=== PATIENT | male | born 1985 | race American Indian/Alaskan Native ===

== ENCOUNTER 2022-06-28 08:45 | Day surgery (SDC) | payer BC, OTHER ==
[~2022-06-28] VITALS: Ht 180.3 cm; Wt 131.8 kg
[~2022-06-28 08:45] MED LIST: CLARINEX-D 121 EACH PO; CLARITIN10 M1 PO; GENTAK5 ML OPTH; OSTERA TABLET1 EACH PO; SUDAFED PE SIN1 EAC2 PO; VITAMIN D325 MC2 PO; ZYRTEC10 M3 PO
--- NOTE | 2022-06-28 12:06 | NUR ---
06/28/22 Lisandra6 Leatha Souza 6945-PATIENT ARRIVED TO PACU ON RA RR EVEN. PATIENT AWAKE DROWSY DENIES NAUSEA HOLDS UP 4 FINGERS FOR PAIN. WHEN ASKED IF TOLERABLE STATES "YA" ICE TO INCISION CDI. PILLOW PROVIDED TO COUGH. IVF INFUSING. SR.
--- NOTE | 2022-06-28 12:51 | NUR ---
PT ARRIVES TO DS RM 4 FROM PACU VIA STRETCHER A&O X3. PT DENIES NAUSEA AND TAKES SMALL SIPS OF WATER. RATES PAIN 4/10 AND "TOLERABLE" WHEN ASKED. EDUCATED ABOUT ORAL PAIN MEDS. DC CRITERIA EXPLAINED. CALL LIGHT WITHIN REACH.
[2022-06-28] MEDS ORDERED: HYDROCODON-ACE1 EA10 PO (13:23)
--- NOTE | 2022-06-28 13:36 | NUR ---
PT RESTING WITH EYES CLOSED, WAKES WITH ENTRANCE TO ROOM. PT RATES PAIN 3-4/10 AND DENIES ANY NAUSEA. THIS RN WILL CALL PT SIG OTHER PER PT REQUEST. PT ENC TO USE CALL LIGHT WITH ANY NEEDS, PROVIDED PUDDING AND CRACKERS.
--- NOTE | 2022-06-28 15:12 | NUR ---
1450: PT RESTING IN BED WITH SIGNIFICANT OTHER AT BEDSIDE. PT STATES PAIN IS "TOLERABLE" AND RATES 4/10. PT STATES INCISION AREA FEELING "TIGHT" AND IS EDUCATED ABOUT MOVEMENT. PT WOULD LIKE TO USE RESTROOM, SITS AT SIDE OF BED PRIOR TO STANDING. STATES SLIGHT DIZZINESS WITH POSITION CHANGE THAT DISSIPATES PRIOR TO STEADY GAIT TO BATHROOM. PT ABLE TO VOID 250 MLS CONCENTRATED YELLOW URINE, BACK TO DS RM 4. PT EYES BLOODSHOT AND SIG OTHER STATES, "THEY WEREN'T LIKE THIS PRIOR TO SURGERY." THIS RN ASSESSES THEM AND RELAYS INFORMATION TO LABOR UTILIZATION SUPERINTENDENT WHO STATES PT WAS STRAINING AND AGGRESSIVE WAKING UP FROM ANESTHESIA.
--- NOTE | 2022-06-28 16:43 | NUR ---
[id number]: MARICHUY CLARKE IN TO ASSESS PT. PT WOULD LIKE TO GET DRESSED AND HEAD HOME AT THIS TIME. SIG OTHER REMAINS AT BEDSIDE WHILE PT DRESSES. [id number]: DC INSTRUCTIONS PRESENTED VERBALLY AND WRITTEN TO BOTH PT AND SIG OTHER, PT VERBALIZES AN UNDERSTANDING AND ASKS ABOUT DOCTOR'S NOTE TO TAKE TO WORK. SIG OTHER GOES TO DR. BORJAS'S OFFICE TO ADDRESS ISSUE. 1615: PT DC VIA WC TO PERSONAL VEHICLE WAITING ON MAIN ENTRANCE OF HOSPITAL TO HOME.
--- NOTE | 2022-06-29 05:43 | OR ---
[facility] [address], [place] [address] Signed DATE OF OPERATION: 06/28/2022 SURGEON: Patricia Borjas MD PREOPERATIVE DIAGNOSIS: Non-reducible epigastric hernia. POSTOPERATIVE DIAGNOSIS: Non-reducible epigastric hernia (8 mm). PROCEDURES: Primary epigastric herniorrhaphy with intraabdominal Ventralex mesh (4.3 cm). ESTIMATED BLOOD LOSS: None. INDICATIONS: Mulugeta is a 37-year-old gentleman with body mass index of 42. He happens to work construction. He had noticed a lump just above the umbilicus, which was non-reducible and symptomatic. He has been there at least nine months if not longer. It started out quite small, maybe 5 mm and now it is around 2.5 cm. He said it has become quite troublesome and causing him significant pain on a daily basis. He went to his primary care provider. An ultrasound confirmed the epigastric hernia. It looks like there is fat in the hernia. Later, he had a CT scan of the abdomen and pelvis because of elevated liver function test, that showed the fascial defect around 5 mm or so. The hernia itself was about 2.5 cm in diameter. It is just above the umbilicus. He came to the office with his lifelong girlfriend. We could easily see and feel the non-reducible hernia. I gave him our brochure on hernias. We reviewed the section on epigastric hernias. We discussed the difference between a primary suture repair and a mesh repair. There is risk to surgery including, but not limited to bleeding, infection, scarring, change in contour the skin, damage to bowel infection of mesh requiring removal, recurrent hernias, and chronic pain. He also understands expected intraop and postop course. He wants to go back to work in a few days. He had expressed understanding and wished to proceed. DESCRIPTION OF PROCEDURE: I met with Mulugeta and his girlfriend in our preop area. We all agreed on the hernia and marked that appropriately. After this, he was taken into the operating room and placed in the supine position under general endotracheal tube anesthesia. He was given preoperative antibiotics along with subcutaneous heparin. SCDs were utilized. He was Electronically Signed By: PATRICIA BORJAS MD 06/29/22 0543 PATIENT NAME: MULUGETA GILL OPERATIVE REPORT DATE OF : 83 REPORT #: [id number] PHYSICIAN: PATRICIA BORJAS MD PCP: MARGARITA OSORIO REPORT IS CONFIDENTIAL AND NOT TO BE RELEASED WITHOUT AUTHORIZATION [facility] [address], [place] [address] Signed prepped and draped in the usual sterile fashion. A standard midline vertical incision was made just above the umbilicus and carried down and around the tissues bluntly and with the cautery. We rapidly found his hernia sac and we divided it from the fascial defect with the help of the cautery. The hernia contained omentum. The omentum was quite indurated. We simply amputated that with our cautery and passed it off the field. The healthy omentum was returned to the abdomen. We could see through the 8 mm fascial defect into the abdomen. We therefore chose a round Ventralex are mesh measuring 4.3 cm in diameter. It was placed into the abdomen, brought up, flushed against the posterior abdominal wall. The fascial defect was closed transversely with a running #1 Prolene suture. Several passes of the suture went through the tab on the mesh to help hold it in place. The tab was cut, flushed with the abdominal wall. Local anesthetic was then copiously injected in the abdominal wall and subcutaneous tissues. The wound was irrigated and suctioned out until clear. The dermis was reapproximated with interrupted 3-0 subcuticular Monocryl sutures. Skin edges were reapproximated with a running 5-0 fast absorbing plain gut suture. Dry gauze and tape were then applied. Mulugeta was awakened from his anesthesia, extubated in the OR, and taken to the recovery room in stable condition. Patricia Borjas MD ALB/MODL /[id number] cc: Patient Chart MD Margarita Verma Copies: PATRICIA BORJAS MD, ELIZABETH ~ Electronically Signed By: PATRICIA BORJAS MD 06/29/22 0543 PATIENT NAME: MULUGETA GILL OPERATIVE REPORT DATE OF : 83 REPORT #: [id number] PHYSICIAN: PATRICIA BORJAS MD PCP: MARGARITA OSORIO REPORT IS CONFIDENTIAL AND NOT TO BE RELEASED WITHOUT AUTHORIZATION
== END 2022-06-28 16:15 | disposition home or self-care (01) ==
LOC: DS 08:45
PROVIDERS: ATTEND Colon & Rectal Surgery
PROC: 0WUF0JZ Supplement Abdominal Wall with Synthetic Substitute, Open Approach (ICD-10-PCS; principal; 2022-06-28 10:30)
DX: K43.9 Ventral hernia without obstruction or gangrene (principal); E66.9 Obesity, unspecified; I10 Essential (primary) hypertension; E55.9 Vitamin D deficiency, unspecified; E78.5 Hyperlipidemia, unspecified; K21.9 Gastro-esophageal reflux disease without esophagitis; Z68.41 Body mass index [BMI] 40.0-44.9, adult
CPT/HCPCS: C1781; J0690; J1170; J1644; J2001; J3010; J7121